=== PATIENT | male | born 1995 | race Caucasian/White ===

== ENCOUNTER 2016-10-19 08:05 | Emergency (ER) | payer BC, OTHER ==
[~2016-10-19] VITALS: Ht 175.3 cm; Wt 72.6 kg
[~2016-10-19 08:05] MED LIST: ACHD5005 PO; AZIT-21 PO; CEPH500C PO; CITA20TA12 PO; CLN150C PO; GABAPENTIN; HYDR-3454 PO; HYDR-707 PO; IBP200T PO; LEVE500T PO; TOPI100T PO; TOPI50TA2 PO; TPR100T PO; TPR25T PO
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
[2016-10-19] MEDS ORDERED: GABA600T2 (08:26)
[2016-10-19] MEDS ORDERED: LORA1TAB (08:26)
[2016-10-19] MEDS ORDERED: LIDOCAINE 1% INJ 20 ML (XYLOCAINE) VIAL INJ ONE (09:45)
[2016-10-19] MEDS ORDERED: cefTRIAXone 1 GM (ROCEPHIN) VIAL IM ONE (09:45)
--- NOTE | 2016-10-19 09:57 | ED General ---
General Chief Complaint: Oral/Throat Problems Stated Complaint: HEADACHE SORE THROAT Nursing Triage Note: WAS SEEN BY DR LIM YESTERDAY ET PUT ON MEDICATIONS FOR HIS THROAT WHICH HE HAS NOT STARTED. STATES HE IS SCHEDULED TO HAVE HIS TONSILS OUT. Nursing Sepsis Screen: No Definite Risk Source of Information: Patient Exam Limitations: No Limitations History of Present Illness Time Seen by Provider: 08:15 Initial Comments This 21-year-old young man presents to emergency room with complaints of worsening sore throat and swelling. He is not sleeping well as a result. He denies any fever. He was seen by Dr. Lim yesterday but did not get his medications due to unavailability of finances. He has problems with tonsillitis and is scheduled to have tonsillectomy. Allergies and Home Medications Allergies Coded Allergies: Sulfa (Sulfonamide Antibiotics) (Verified Allergy, Unknown, HIVES, 04/27/14 ) hydrocodone (Verified Allergy, Unknown, 04/27/14) seizure Home Medications Gabapentin 600 Mg Tablet #90 (Reported) Lorazepam 1 Mg Tablet #60 (Reported) Constitutional: no symptoms reported EENTM: see HPI Respiratory: no symptoms reported Cardiovascular: no symptoms reported Gastrointestinal: no symptoms reported Genitourinary: no symptoms reported Musculoskeletal: no symptoms reported Skin: no symptoms reported Psychiatric/Neurological: No Symptoms Reported Past Zwdhpwc-Cmxaod-Xcffot Hx Patient Social History Alcohol Use: Denies Use Recreational Drug Use: No Smoking Status: Current Everyday Smoker Recent Foreign Travel: No Contact w/Someone Who Travel: No Recent Infectious Disease Expo: No Recent Hopitalizations: No Immunizations Up To Date Tetanus Booster (TDap): Less than 5yrs Date of Influenza Vaccine: Apr 07, 2013 Surgeries HX Surgeries: Yes (DIAPHRAGMATIC HERNIA REPAIR AT ) Surgeries: Abdominal Respiratory Hx Respiratory Disorders: No Cardiovascular Hx Cardiac Disorders: No Neurological Hx Neurological Disorders: Yes Neurological Disorders: Seizure Disorder Genitourinary Hx Genitourinary Disorders: No Gastrointestinal Hx Gastrointestinal Disorders: Yes (SMALL BOWEL PROBLEM) Musculoskeletal Hx Musculoskeletal Disorders: No Endocrine Hx Endocrine Disorders: No HEENT HX ENT Disorders: No Cancer Hx Cancer: No Psychosocial Hx Psychiatric Problems: No Integumentary HX Skin/Integumentary Disorder: No Blood Transfusions Hx Blood Disorders: No Family Medical History Family Medial History: Arthritis 19 FATHER 19 MOTHER Gastroenteritis 19 MOTHER (SMALL BOWEL PROBLEM DIAPHORETIC HERNIA ) Headache disorder G8 BROTHER Hypertension 19 FATHER Seizure disorder 19 MOTHER (HAD EPILEPSY A CHILD) No Family History of: AIDS Abdominal aortic aneurysm Guernsey's disease Alcoholism Alzheimer's disease Aphasia Asthma Cancer of mouth Cardiovascular disease Cataracts Colon cancer Completed stroke Congenital disease Congenital heart disease Coronary thrombosis Cystic fibrosis Deafness or hearing loss Dementia Diabetes mellitus Drug abuse Dysphasia Fibrocystic disease of breast Glaucoma Infertility Kidney disease Myocardial infarction Neoplasm Osteoporosis Parkinson's disease Prostate cancer Psychosocial problem Respiratory disorder Severe allergy Thyroid disease Tuberculosis Visual disorder Physical Exam Vital Signs Vital Sign - Last 12Hours 10/19/16 08:10 Temp 97.8 Pulse 105 Resp 16 B/P 115/92 Pulse Ox 96 Capillary Refill : Less Than 3 Seconds General Appearance: WD/WN Mild Distress HEENT: PERRL/EOMI Normal ENT Inspection Tonsillar Exudate Tonsillar Enlargement (markedly enlarged, nearly touching) Neck: Lymphadenopathy (L) Lymphadenopathy (R) Respiratory: Lungs Clear Normal Breath Sounds No Accessory Muscle Use No Respiratory Distress Cardiovascular: Regular Rate, Rhythm No Edema No Murmur Gastrointestinal: Non Tender Soft Extremity: Normal Inspection Neurologic/Psychiatric: Alert Oriented x3 No Motor/Sensory Deficits Normal Mood/Affect knitting machine fixer 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 Patient will be treated with antibiotics until culture results are known. Patient was advised to get tested for mononucleosis if not responsive to the antibiotics. Antibiotic therapy was initiated with a Rocephin injection. Toradol was also given. Patient was given viscous lidocaine to swallow for topical pain relief. Departure Impression Impression: Primary Impression: Pharyngitis Qualified Code: J02.9 - Acute pharyngitis, unspecified Additional Impression: Tonsillitis Disposition: HOME, SELF-CARE Condition: Improved Departure-Patient Inst. Decision time for Depature: 09:35 Referrals: [facility] (PCP[facility]Family) Primary Care Physician Patient Instructions: Sore Throat, Adult (DC) Add. Discharge Instructions: Complete your antibiotics as prescribed by Dr. Lim. You may take Tylenol and/or ibuprofen for pain. Return to care if symptoms worsen. Keep your referral to discuss possible tonsillectomy. If symptoms are not improving after a couple days of antibiotics, consider being tested for mononucleosis. Replace toothbrush or any other oral instruments about 5 days after starting antibiotics. All discharge instructions reviewed with patient and/or family. Voiced understanding. ERIKA PICKETT MD Oct 19, 2016 09:57 Primary Care Physician Patient Instructions: Sore Throat, Adult (DC) Add. Discharge Instructions: Complete your antibiotics as prescribed by Dr. Lim. You may take Tylenol and/or ibuprofen for pain. Return to care if symptoms worsen. Keep your referral to discuss possible tonsillectomy. If symptoms are not improving after a couple days of antibiotics, consider being tested for mononucleosis. Replace toothbrush or any other oral instruments about 5 days after starting antibiotics. All discharge instructions reviewed with patient and/or family. Voiced understanding. ERIKA PICKETT MD Oct 19, 2016 09:57
[2016-10-19] MEDS ORDERED: LIDOCAINE 2% VISCOUS 15 ML UDC PO ONE (10:00)
[2016-10-19] MEDS ORDERED: KETOROLAC 60 MG/2 ML VIAL IM ONE (10:15)
[2016-10-19 10:19] VITALS: BP 115/92
== END 2016-10-19 10:19 | disposition home or self-care (01) ==
LOC: EDUNIT# 08:05 → ER 08:08
DX: J03.90 Acute tonsillitis, unspecified (principal); F17.210 Nicotine dependence, cigarettes, uncomplicated
CPT/HCPCS: 87430; 87804; 96372

== ENCOUNTER → 2017-02-21 | Outpatient (CLI) | payer BC ==
[~2017-02-21] MED LIST changes: +CATHETER FLUSH 10 ML SYR IV PRN; +GABA600T2; +IOHEXOL 350 MG/ML 100 ML (OMNIPAQUE 350) VIAL IV ONE; +LORA1TAB; +NS 100 ML (IVPB) BAG IV ONE
--- NOTE | 2017-02-21 09:51 | Diagnostic Imaging Report ---
INDICATION: Seizures. Vertigo. Headache. TECHNIQUE: Routine pre-and postcontrast-enhanced axial images were obtained from the skull base to the vertex. COMPARISON: 05/28/2014 FINDINGS: The ventricles and cortical sulci are normal in size and contour. Postcontrast images show no abnormal areas of enhancement. There is no midline shift or mass-effect. No acute intra-axial hemorrhage is seen. There are no abnormal areas of increased or decreased density to suggest acute hemorrhage or edema. No extra-axial masses or collections are present. The bony calvarium is intact. The visualized paranasal sinuses are unremarkable. The mastoid air cells are clear. IMPRESSION: 1. No acute intracranial abnormality. No CT evidence of mass, acute infarct or intracranial hemorrhage. Dictated by: Dictated on workstation # [id number]
== END ==
LOC: RAD 09:09
PROVIDERS: ATTEND Nurse Practitioner Community Health
DX: R56.9 Unspecified convulsions (principal); R42 Dizziness and giddiness; R51 Headache
CPT/HCPCS: 70470

== ENCOUNTER 2018-10-24 08:29 | Emergency (ER) | payer SELFPAY ==
[~2018-10-24] VITALS: Ht 175.3 cm; Wt 79.4 kg
[~2018-10-24 08:29] MED LIST changes: -CATHETER FLUSH 10 ML SYR IV PRN; -GABA600T2; +GBPN600T; -IOHEXOL 350 MG/ML 100 ML (OMNIPAQUE 350) VIAL IV ONE; -NS 100 ML (IVPB) BAG IV ONE
--- OUTSIDE RECORDS SUMMARY | 2018-10-24 08:34 | XMS REPORT ---
Author JOAO Roca Organization [employer] Address Unknown Phone Unavailable Care Team Providers Care Turret Lathe Tender Name Role Phone JOAO ROMAN CP Unavailable Allergies, Adverse Reactions, Alerts Substance Reaction Event Type Hydrocodone-Acetaminophen seizures Drug Allergy Problems Problem Type Condition ICD-9 Code Onset Dates Condition Status Problem Acute infection of pinna 380.11 Active Problem Encounter for long-term (current) use of other medications V58.69 Active Problem Acute upper respiratory infections of unspecified site 465.9 Active Problem Contusion of unspecified site 924.9 Active Problem Pain in soft tissues of limb 729.5 Active Problem Postconcussion syndrome 310.2 Active Problem Other specified disease of hair and hair follicles 704.8 Active Problem Bipolar disorder, unspecified 296.80 Active Problem Nausea with vomiting 787.01 Active Problem Memory loss 780.93 Active Assessment Sebaceous cyst 706.2 Active Assessment Seizures 780.39 Active Problem Head injury, unspecified 959.01 Active Problem 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
--- OUTSIDE RECORDS SUMMARY | 2018-10-24 08:35 | XMS REPORT ---
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 [address]-92 1 MG Orally 2 times a day March 04, 2016 1 tablet as needed Neurontin [facility] [address]-62 600 MG Orally Three times a day March 04, 2016 1 tablet Procedures Procedure Coding System Code Date Office Visit, Est Pt., Level 3 CPT-4 03177 Mar 28, 2016 Vital Signs Date/Time: Mar 28, 2016 Cardiac Monitoring Heart Rate 74 bpm Weight 152.6 lbs Height 69 in BMI 22.53 Index Blood Pressure Diastolic 77 mmHg Blood Pressure Systolic 125 mmHg Results No Known Results Summary Purpose [employer] Submission
--- OUTSIDE RECORDS SUMMARY | 2018-10-24 08:35 | XMS REPORT ---
Author Author JOAO ROMAN [facility] Address [address] [place] [address] Care Team Providers Care Wire Dropper Name Role Phone ABEL JOAO Unavailable PROBLEMS Unknown Problems ALLERGIES Substance Reaction Event Type Date Status Hydrocodone-Acetaminophen seizures Drug Allergy December, Active SOCIAL HISTORY Never Assessed PLAN OF CARE VITAL SIGNS Height 69 in 2016-12-26 Weight 159 lbs 2016-12-26 Temperature 98.4 degrees Fahrenheit 2016-12-26 Heart Rate 88 bpm 2016-12-26 Respiratory Rate 18 2016-12-26 BMI 23.48 kg/m2 2016-12-26 Blood pressure systolic 110 mmHg 2016-12-26 Blood pressure diastolic 70 mmHg 2016-12-26 MEDICATIONS Medication Instructions Dosage Frequency Start Date End Date Duration Status Neurontin 600 MG Orally Three times a day 1 tablet 8h Feb, 30 day(s) Active Zofran 4 MG Orally 3 times a day 1 tablet 8h December, Active Ativan 1 MG Orally 2 times a day 1 tablet as needed 12h Feb, Active RESULTS No Results PROCEDURES No Known procedures IMMUNIZATIONS No Known Immunizations MEDICAL (GENERAL) HISTORY Type Description Date Medical History seizures Medical History diaphramatic hernia Surgical History hernia repair Surgical History cyst removal from ear Hospitalization History surgeries Hospitalization History [facility] then transmitted to [place] for multiple seizers Hospitalization History TBI from hit in Football. Seizures. 18 yoa
--- OUTSIDE RECORDS SUMMARY | 2018-10-24 08:35 | XMS REPORT ---
Author Author DEEJAY ORTEGA [facility] Address [address] [place] [address] Care Team Providers Care Handicraft Or Hobby Shop Manager Name Role Phone DEEJAY ORTEGA Unavailable PROBLEMS Unknown Problems ALLERGIES Substance Reaction Event Type Date Status Hydrocodone-Acetaminophen seizures Drug Allergy Sep, Active SOCIAL HISTORY Never Assessed PLAN OF CARE Activity Details Follow Up prn Reason: VITAL SIGNS Height 69 in 2016-09-21 Weight 160.5 lbs 2016-09-21 Temperature 98.3 degrees Fahrenheit 2016-09-21 Heart Rate 80 bpm 2016-09-21 Respiratory Rate 18 2016-09-21 BMI 23.70 kg/m2 2016-09-21 Blood pressure systolic 104 mmHg 2016-09-21 Blood pressure diastolic 78 mmHg 2016-09-21 MEDICATIONS Medication Instructions Dosage Frequency Start Date End Date Duration Status Ativan 1 MG Orally 2 times a day 1 tablet as needed 12h Feb, Active Zofran 4 MG Orally 3 times a day 2 tablets as needed 8h Sep, 05 days Active Neurontin 600 MG Orally Three times a day 1 tablet 8h Feb, 30 day(s) Active RESULTS No Results PROCEDURES Procedure Date Ordered Result Body Site PHENERGAN 50MG/ML Sep 21, 2016 THER/PROPH/DIAG INJ, SC/IM Sep 21, 2016 IMMUNIZATIONS Vaccine Route Administration Date Status PHENERGAN 50MG/ML IM Intramuscular Sep 21, 2016 Administered MEDICAL (GENERAL) HISTORY Type Description Date Medical History seizures Medical History diaphramatic hernia Surgical History hernia repair Surgical History cyst removal from ear Hospitalization History surgeries Hospitalization History [facility] then transmitted to [place] for multiple seizers Hospitalization History TBI from hit in Football. Seizures. 18 yoa
--- OUTSIDE RECORDS SUMMARY | 2018-10-24 08:35 | XMS REPORT ---
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 Problem Contusion of unspecified site 924.9 Active Problem Pain in soft tissues of limb 729.5 Active Problem Postconcussion syndrome 310.2 Active Problem Other specified disease of hair and hair follicles 704.8 Active Problem Bipolar disorder, unspecified 296.80 Active Problem Nausea with vomiting 787.01 Active Problem Memory loss 780.93 Active Medications Medication Code System Code Instructions Start Date End Date Status Dosage Topamax [facility] [address]-72 50 MG Orally Once a day Apr 23, 2014 1 tablet Results No Known Results Summary Purpose [employer] Submission
--- OUTSIDE RECORDS SUMMARY | 2018-10-24 08:35 | XMS REPORT ---
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
--- OUTSIDE RECORDS SUMMARY | 2018-10-24 08:35 | XMS REPORT ---
Author Author ANGELLA LIM Organization [facility] Address [address] [place] [address] Care Team Providers Care Publicity Expert Name Role Phone ANGELLA LIM Unavailable PROBLEMS Unknown Problems ALLERGIES Substance Reaction Event Type Date Status Hydrocodone-Acetaminophen seizures Drug Allergy Jun, Active ENCOUNTERS Encounter Location Date Diagnosis [address] [address] Sep, Costochondritis M94.[address] [address] Jun, Arthralgia, unspecified joint M25.50 and Frequent headaches R51 [address] [address] Feb, Seizures R56.9 and Dizziness R42 [address] [address] Feb, Seizures R56.9 and Dizziness R42 [address] [address] December, Viral gastroenteritis A08.[address] [address] Oct, Tonsillitis J03.[address] [address] Sep, Gastroenteritis K52.9 ; Dehydration E86.0 and Seizures R56.[address] [address] Aug, Bronchitis J40 [address] [address] May, [facility] [address] [address] May, [facility] [address] [place] [id number] Mar, Seizures R56.9 [facility] [id number] [place] [address] Feb, Seizures R56.9 [facility] [id number] [place] [address] Sep, Abscess of external ear, left H60.02 [facility] [id number] [place] [address] Jun, [facility] [id number] [place] [address] Mar, Seizures 780.39 and Sebaceous cyst 706.2 [facility] [id number] [place] [address] Nov, [facility] [id number] [place] [address] Nov, [facility] [address] [address] May, [facility] [address] [address] May, [facility] [address] [address] May, [facility] [id number] [place] [address] May, [facility] [address] [place] Apr, [facility] [address] [address] Apr, [facility] [place] [facility] [address] [id number] [place] [address] 17 Apr, 2014 [facility] [place] [facility] [address] [id number] [place] [address] Apr, [facility] [place] [facility] [address] [id number] [place] [address] Apr, [facility] [place] [facility] [address] [id number] [place] [address] Apr, [facility] [place] [facility] [address] [id number] [place] [address] Mar, [facility] [place] [facility] [address] [id number] [place] [address] Mar, [facility] [place] [facility] [address] [id number] [place] [address] December, [facility] [place] [facility] [address] [id number] [place] [address] December, [facility] [place] [facility] [address] [id number] [place] [address] December, [facility] [place] [facility] [address] [id number] [place] [address] December, [facility] [place] [facility] [address] [id number] [place] [address] Nov, [facility] [place] [facility] [address] [id number] [place] [address] Nov, [facility] [place] [facility] [address] [id number] [place] [address] Nov, [facility] [place] [facility] [address] [id number] [place] [address] Nov, [facility] [place] [facility] [address] [id number] [place] [address] Nov, [facility] [place] [facility] [address] [id number] [place] [address] Nov, [facility] [address] [id number] [place] [address] Jun, [facility] [place] [facility] [address] [id number] [place] [address] Jun, [facility] [place] [facility] [address] [id number] [place] [address] Jan, [facility] [place] [facility] [address] [id number] [place] [address] Jan, [facility] [place] [facility] [address] [id number] [place] [address] Jan, [facility] [place] [facility] [address] [id number] [place] [address] December, [facility] [place] [facility] [address] [id number] [place] [address] Sep, [facility] [place] [facility] [address] [id number] [place] [address] Aug, [facility] [place] [facility] [address] [id number] [place] [address] Jul, [facility] [place] [facility] [address] [id number] [place] [address] Jul, [facility] [place] [facility] [address] [id number] [place] [address] Jun, [facility] [place] [facility] [address] [id number] [place] [address] Jun, [facility] [place] [facility] [address] [id number] [place] [address] Feb, [facility] [place] [facility] [address] [id number] [place] [address] 13 Nov, 2011 [facility] [place] [facility] [address] [id number] [place] [address] Nov, [facility] [place] [facility] [id number] [address] 08 Oct, 2011 [facility] [id number] [address] Oct, [facility] [address] [address] Sep, [facility] [address] [address] Sep, [facility] [address] [address] Jul, [facility] [id number] [place] [address] Jun, [facility] [address] [address] Aug, IMMUNIZATIONS No Known Immunizations SOCIAL HISTORY Never Assessed REASON FOR VISIT Headache causing dizziness, nausea, vomitting, joint pain for two weeks--Lori Pena MA PLAN OF CARE Activity Details Follow Up Will call after lab Reason: VITAL SIGNS Height 69 in 2017-07-06 Weight 172.5 lbs 2017-07-06 Temperature 98.3 degrees Fahrenheit 2017-07-06 Heart Rate 72 bpm 2017-07-06 Respiratory Rate 20 2017-07-06 BMI 25.47 kg/m2 2017-07-06 Blood pressure systolic 120 mmHg 2017-07-06 Blood pressure diastolic 88 mmHg 2017-07-06 MEDICATIONS Medication Instructions Dosage Frequency Start Date End Date Duration Status Neurontin 800 MG Orally Three times a day 1 tablet 8h Feb, 30 day(s) Not-Taking Ativan 1 MG Orally 2 times a day 1 tablet as needed 12h Feb, Not-Taking Zofran 4 MG Orally 3 times a day 1 tablet 8h December, Not-Taking RESULTS No Results PROCEDURES Procedure Date Ordered Result Body Site COMPLETE CBC W/AUTO DIFF WBC Jul 06, 2017 C-REACTIVE PROTEIN Jul 06, 2017 VENIPUNCT, ROUTINE* Jul 06, 2017 COMPREHEN METABOLIC PANEL Jul 06, 2017 INSTRUCTIONS MEDICATIONS ADMINISTERED No Known Medications MEDICAL (GENERAL) HISTORY Type Description Date Medical History seizures Medical History diaphramatic hernia Surgical History hernia repair Surgical History cyst removal from ear Hospitalization History surgeries Hospitalization History [facility] then transmitted to [place] for multiple seizers Hospitalization History TBI from hit in Football. Seizures. 18 yoa
--- OUTSIDE RECORDS SUMMARY | 2018-10-24 08:35 | XMS REPORT ---
Author JOAO Roca Organization [employer] Address Unknown Phone Unavailable Care Team Providers Care Linux System Engineer Name Role Phone JOAO ROMAN CP Unavailable [...] Start Date End Date Status Dosage Ativan [facility] [address]-39 1 MG Orally 2 times a day March 04, 2016 1 tablet as needed Results No Known Results Summary Purpose [employer] Submission
--- OUTSIDE RECORDS SUMMARY | 2018-10-24 08:35 | XMS REPORT ---
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 Name Role Phone JOAO ROMAN Unavailable PROBLEMS Unknown Problems ALLERGIES No Information ENCOUNTERS Encounter Location Date Diagnosis [address] [address] Sep, Costochondritis M94.[address] [address] Jun, Arthralgia, unspecified joint M25.50 and Frequent headaches R51 [address] [address] Feb, Seizures R56.9 and Dizziness R42 [address] [address] Feb, Seizures R56.9 and Dizziness R42 [place] [id number] [place] [address] December, Viral gastroenteritis A08.[address] [address] Oct, Tonsillitis J03.90 [place] [id number] [place] [address] Sep, Gastroenteritis K52.9 ; Dehydration E86.0 and Seizures R56.[address] [address] Aug, Bronchitis J40 [address] [address] May, [place] [id number] [address] May, [facility] [id number] [place] [address] Mar, [address] R56.9 [facility] [id number] [place] [address] 2546 Feb, Seizures R56.9 [facility] [id number] [place] [address] 2546 08 Sep, 2015 Abscess of external ear, left H60.02 [facility] [id number] [place] [address], [place] [address] Jun, [facility] [id number] [place] [address]- [address] Mar, Seizures 780.39 and Sebaceous cyst 706.2 [facility] [id number] [place] [address]- [address] Nov, [facility] [id number] [place] [address]- 29[address] Nov, [facility] [id number] [place] [address]- [address] May, [facility] [address] [address] 17 May, 2014 [facility] [id number] [place] [address]- [address] 14 May, 2014 [facility] [address] [address] 25[address] 14 May, 2014 [facility] [id number] [place] [address] 2546 Apr, [facility] [address] [address] Apr, [facility] [id number] [place] [address]- [address] Apr, [facility] [place] [facility] [address] [id number] [place] [address] Apr, [facility] [place] [facility] [address] [id number] [place] [address]- [address] Apr, [facility] [place] [facility] [address] [id number] [place] [address] 64[address] Apr, [facility] [place] [facility] [address] [id number] [place] [address] 14[address] Mar, [facility] [place] [facility] [address] [id number] [place] [address] 4299 Mar, [facility] [place] [facility] [address] [id number] [place] [address]- [address] December, [facility] [place] [facility] [address] [id number] [place] [address]- 9653 December, [facility] [place] [facility] [address] [id number] [place] [address]- 2[address] December, [facility] [place] [facility] [address] [id number] [place] [address]- 125[address] December, [facility] [place] [facility] [address] [id number] [place] [address]- 8[address] Nov, [facility] [place] [facility] [address] [id number] [place] [address]- 2521 Nov, [facility] [place] [facility] [address] [id number] [place] [address] 5[address] Nov, [facility] [place] [facility] [address] [id number] [place] [address]- 1366 Nov, [facility] [place] [facility] [address] [id number] [place] [address]- 8871 Nov, [facility] [place] [facility] [address] [id number] [place] [address]- 8859 Nov, [facility] [place] [facility] [address] [id number] [place] [address]- [address] 05 Jun, 2013 [facility] [address] [id number] [place] [address]- [address] 05 Jun, 2013 [facility] [place] [facility] [address] [id number] [place] [address]- 8[address] 14 Jan, 2013 [facility] [address] [id number] [place] [address]- 0[address] Jan, [facility] [place] [facility] [address] [id number] [place] [address]- 8252 Jan, [facility] [address] [id number] [place] [address]- [address] December, [facility] [place] [facility] [address] [id number] [place] [address]- 88[address] Sep, [facility] [address] [id number] [place] [address]- 0[address] Aug, [facility] [address] [id number] [place] [address]- 5393 Jul, [facility] [address] [id number] [place] [address]- 79[address] Jul, [facility] [address] [facility] [id number] [place] [address]- 6[address] Jun, [facility] [address] [id number] [place] [address]- 7964 Jun, [facility] [place] [facility] [address] [id number] [place] [address]- 8848 Feb, [facility] [place] [facility] [address] [id number] [place] [address]- [address] 13 Nov, 2011 [facility] [place] [facility] [address] [id number] [place] [address]- 36[address] Nov, [facility] [place] [facility] [address] [id number] [place] [address]- 8854 08 Oct, 2011 [facility] [id number] [address] Oct, [facility] [id number] [address] Sep, [facility] [address] [address]- [address] Sep, [facility] [address] [address]- [address] Jul, [facility] [address] [address]- [address] Jun, [facility] [address] [address] Aug, IMMUNIZATIONS No Known Immunizations SOCIAL HISTORY Never Assessed REASON FOR VISIT PLAN OF CARE VITAL SIGNS MEDICATIONS No Known Medications RESULTS Name Result Date Reference Range CT Scan : Head/Brain w/o & w/ Contrast 2017-02-21 PROCEDURES No Known procedures INSTRUCTIONS MEDICATIONS ADMINISTERED No Known Medications MEDICAL (GENERAL) HISTORY Type Description Date Medical History seizures Medical History diaphramatic hernia Surgical History hernia repair Surgical History cyst removal from ear Hospitalization History surgeries Hospitalization History [facility] then transmitted to [place] for multiple seizers Hospitalization History TBI from hit in Football. Seizures. 18 yoa
--- OUTSIDE RECORDS SUMMARY | 2018-10-24 08:35 | XMS REPORT ---
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 Engine Assembler Name Role Phone ANGELLA LIM Unavailable PROBLEMS Unknown Problems ALLERGIES Substance Reaction Event Type Date Status Hydrocodone-Acetaminophen seizures Drug Allergy Oct, Active SOCIAL HISTORY Never Assessed PLAN OF CARE Activity Details Follow Up prn Reason: VITAL SIGNS Height 69 in 2016-10-18 Weight 161.5 lbs 2016-10-18 Temperature 99.0 degrees Fahrenheit 2016-10-18 Heart Rate 78 bpm 2016-10-18 Respiratory Rate 18 2016-10-18 BMI 23.85 kg/m2 2016-10-18 Blood pressure systolic 120 mmHg 2016-10-18 Blood pressure diastolic 78 mmHg 2016-10-18 MEDICATIONS Medication Instructions Dosage Frequency Start Date End Date Duration Status Ativan 1 MG Orally 2 times a day 1 tablet as needed 12h Feb, Active Amoxicillin 500 mg Orally 3 times a day 1 capsule 8h Oct, Oct, 07 days Active Pseudoephedrine HCl 60 mg Orally every 6 hrs 1 tablet as needed 6h Oct, 5 days Active Neurontin 600 MG Orally Three times a day 1 tablet 8h Feb, 30 day(s) Active RESULTS No Results PROCEDURES No Known procedures IMMUNIZATIONS No Known Immunizations MEDICAL (GENERAL) HISTORY Type Description Date Medical History seizures Medical History diaphramatic hernia Surgical History hernia repair Surgical History cyst removal from ear Hospitalization History surgeries Hospitalization History [facility] then [facility] [place] for multiple seizers Hospitalization History TBI from hit in Football. Seizures. 18 yoa
--- OUTSIDE RECORDS SUMMARY | 2018-10-24 08:35 | XMS REPORT ---
Author Author JOAO ROMAN [facility] Address [address] [place] [address] Care Team Providers Care Parole Or Probation Officer Name Role Phone JOAO ROMAN Unavailable PROBLEMS Unknown Problems ALLERGIES Substance Reaction Event Type Date Status Hydrocodone-Acetaminophen seizures Drug Allergy Aug, Active SOCIAL HISTORY No smoking Hx information available PLAN OF CARE VITAL SIGNS Height 69 in 2016-08-22 Weight 159.1 lbs 2016-08-22 Temperature 98.3 degrees Fahrenheit 2016-08-22 Heart Rate 101 bpm 2016-08-22 Respiratory Rate 18 2016-08-22 Oximetry 98 % 2016-08-22 BMI 23.49 kg/m2 2016-08-22 Blood pressure systolic 132 mmHg 2016-08-22 Blood pressure diastolic 88 mmHg 2016-08-22 MEDICATIONS Medication Instructions Dosage Frequency Start Date End Date Duration Status Tessalon Perles 100 MG Orally Three times a day 1 capsule as needed 8h Aug, Active Doxycycline Hyclate 100 MG Orally every 12 hrs 1 capsule 12h Aug, Aug, 10 days Active Ativan 1 MG Orally 2 times a day 1 tablet as needed 12h Feb, Active Neurontin 600 MG Orally Three times a day 1 tablet 8h Feb, 30 day(s) Active PredniSONE 20 mg Orally Once a day 2 tablets 24h Aug, Aug, 05 days Active RESULTS No Results PROCEDURES Procedure Date Ordered Related Diagnosis Body Site MEASURE BLOOD OXYGEN LEVEL Aug 22, 2016 Office Visit, Est Pt., Level 3 Aug 22, 2016 IMMUNIZATIONS No Known Immunizations
--- OUTSIDE RECORDS SUMMARY | 2018-10-24 08:35 | XMS REPORT ---
Author JOAO Roca Organization [employer] Address Unknown Phone Unavailable Care Team Providers Care Bench Assembler Battery Name Role Phone JOAO ROMAN CP Unavailable [...] Active Problem Memory loss 780.93 Active Medications No Known Medications Results No Known Results Summary Purpose [employer] Submission
--- OUTSIDE RECORDS SUMMARY | 2018-10-24 08:35 | XMS REPORT ---
Author JOAO Roca Organization [employer] Address Unknown Phone Unavailable Care Team Providers Care Marble Helper Name Role Phone JOAO ROMAN CP Unavailable [...] Instructions Start Date End Date Status Dosage Neurontin [facility] [address]-64 600 MG Orally Three times a day March 04, 2016 1 tablet Ativan [facility] [address]-26 1 MG Orally 2 times a day March 04, 2016 1 tablet as needed Procedures Procedure Coding System Code Date Office Visit, Est Pt., Level 3 CPT-4 21033 March 04, 2016 Vital Signs Date/Time: March 04, 2016 Cardiac Monitoring Heart Rate 72 bpm Weight 147.2 lbs Height 69 in BMI 21.74 Index Blood Pressure Diastolic 76 mmHg Blood Pressure Systolic 120 mmHg Results No Known Results Summary Purpose [employer] Submission
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
[2018-10-24] MEDS ORDERED: NS IV 1000 ML 1,000 ML IV STA (09:25)
[2018-10-24] MEDS ORDERED: KETOROLAC 30 MG/ML VIAL IVP STA (09:25)
[2018-10-24 09:33] LABS: BASOPHILS % (AUTO) 0 % (0-10); EOSINOPHILS # (AUTO) 0.3 10^3/uL (0.0-0.3); EOSINOPHILS % (AUTO) 3 % (0-10); HEMATOCRIT 45 % (40-54); HEMOGLOBIN 15.5 G/DL (13.3-17.7); LYMPHOCYTES # (AUTO) 2.9 X 10^3 (1.0-4.0); LYMPHOCYTES % (AUTO) 26 % (12-44); MEAN CORPUSCULAR HEMOGLOBIN 31 PG (25-34); MEAN CORPUSCULAR HGB CONC 35 G/DL (32-36); MEAN CORPUSCULAR VOLUME 88 FL (80-99); MEAN PLATELET VOLUME 10.8 FL (7.4-10.4); MONOCYTES # (AUTO) 1.3 X 10^3 (0.0-1.0); MONOCYTES % (AUTO) 12 % (0-12); NEUTROPHILS # (AUTO) 6.4 X 10^3 (1.8-7.8); NEUTROPHILS % (AUTO) 59 % (42-75); PLATELET COUNT 246 10^3/uL (130-400); RED CELL DISTRIBUTION WIDTH 12.7 % (10.0-14.5); WHITE BLOOD COUNT 10.9 10^3/uL (4.3-11.0)
[2018-10-24 09:45] LABS: BILIRUBIN,URINE NEGATIVE (NEGATIVE); CLARITY,URINE CLEAR; COLOR,URINE YELLOW; GLUCOSE, URINE (UA) NEGATIVE (NEGATIVE); KETONES,URINE NEGATIVE (NEGATIVE); LEUKOCYTE ESTERASE ,URINE NEGATIVE (NEGATIVE); NITRITE,URINE NEGATIVE (NEGATIVE); PH,URINE 7 (5-9); PROTEIN,URINE NEGATIVE (NEGATIVE); UROBILINOGEN,URINE NORMAL (NORMAL)
[2018-10-24 09:50] LABS: ALANINE AMINOTRANSFERASE 13 U/L (0-55); ALBUMIN 4.5 GM/DL (3.2-4.5); ALKALINE PHOSPHATASE 61 U/L (40-136); BILIRUBIN,TOTAL 0.6 MG/DL (0.1-1.0); BUN/CREATININE RATIO 12; CALCIUM 9.3 MG/DL (8.5-10.1); CARBON DIOXIDE 25 MMOL/L (21-32); CHLORIDE 105 MMOL/L (98-107); CREATININE SERUM 1.18 MG/DL (0.60-1.30); GFR ESTIMATED > 60; GLUCOSE 92 MG/DL (70-105); POTASSIUM 4.5 MMOL/L (3.6-5.0); SODIUM 139 MMOL/L (135-145); TOTAL PROTEIN 7.4 GM/DL (6.4-8.2)
[2018-10-24 09:54] LABS: BACTERIA,URINE NEGATIVE /HPF
--- NOTE | 2018-10-24 10:11 | ED Abdominal Pain ---
General Chief Complaint: Abdominal/GI Problems Stated Complaint: POSSIBLE KIDNEY STONE Nursing Triage Note: PT PRESENTS TO ED WITH COMPLAINTS OF LOW ABDOMINAL PAIN AND LOWER BACK PAIN. PT STATES HE HAS NOT BEEN ABLE TO URINATE OR DEFICATE THE PAST 3 DAYS. ALSO REPORTS HE HAS BARELY SLEPT. Sepsis Screen: No Definite Risk Source of Information: Patient Exam Limitations: No Limitations History of Present Illness Date Seen by Provider: Oct 24, 2018 Time Seen by Provider: 09:20 Initial Comments Here with lower abdominal pain and low back pain for 3 days. States that he has not had a bowel movement for 3 days. Feels like there is pressure there. States that is been unable to urinate. reports eating and drinking but lesser amount due to abdominal pain. No nausea or vomiting. States he usually gets this about once a year. 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 Timing/Duration: 3-4 Days Severity/Quality: Moderate, Aching, Cramping Location: Generalized Abdomen Radiation: Back, Other (lower abdomen and back) Modifying Factors: Worsens With Movement; Improves With Resting Associated Symptoms: Back Pain; No Chest Pain, No Fever/Chills, No Nausea/ Vomiting, No Shortness of Air, No Weakness Allergies and Home Medications Allergies Coded Allergies: Sulfa (Sulfonamide Antibiotics) (Verified Allergy, Unknown, HIVES, 04/27/14 ) hydrocodone (Verified Allergy, Unknown, 04/27/14) seizure Patient Home Medication List Home Medication List Reviewed: Yes Review of Systems Review of Systems Constitutional: see HPI; No chills, No fever Respiratory: No Symptoms Reported Cardiovascular: No Symptoms Reported Gastrointestinal: See HPI, Constipated; Denies Nausea, Denies Vomiting Genitourinary: Pain, Other (fullness) Musculoskeletal: back pain; No muscle pain Skin: no symptoms reported All Other Systems Reviewed Negative Unless Noted: Yes Past Dobvepg-Zrzfmc-Ffjkns Hx Past Med/Social Hx: Reviewed Nursing Past Med/Soc Hx Patient Social History Alcohol Use: Occasionally Uses Recreational Drug Use: No Smoking Status: Current Everyday Smoker Type Used: Cigarettes Recent Foreign Travel: No Contact w/Someone Who Travel: No Recent Infectious Disease Expo: No Recent Hopitalizations: No Physical Abuse: No Sexual Abuse: No Mistreated: No Fear: No Immunizations Up To Date Tetanus Booster (TDap): Less than 5yrs Date of Influenza Vaccine: Apr 07, 2013 Past Medical History Surgeries: Yes (DIAPHRAGMATIC HERNIA REPAIR AT ) Abdominal Respiratory: No Cardiac: No Neurological: Yes Seizure Disorder Genitourinary: Yes (RETENTION ISSUES) Gastrointestinal: Yes (SMALL BOWEL PROBLEM, [facility]) Musculoskeletal: No Endocrine: No Cancer: No Psychosocial: No Integumentary: No Blood Disorders: No Family Medical History Reviewed Nursing Family Hx Arthritis 19 FATHER 19 MOTHER Gastroenteritis 19 MOTHER (SMALL BOWEL PROBLEM DIAPHORETIC HERNIA ) Headache disorder G8 BROTHER Hypertension 19 FATHER Seizure disorder 19 MOTHER (HAD EPILEPSY A CHILD) No Family History of: AIDS Abdominal aortic aneurysm Al's disease Alcoholism Alzheimer's disease Aphasia Asthma Cancer of mouth Cardiovascular disease Cataracts Colon cancer Completed stroke Congenital disease Congenital heart disease Coronary thrombosis Cystic fibrosis Deafness or hearing loss Dementia Diabetes mellitus Drug abuse Dysphasia Fibrocystic disease of breast Glaucoma Infertility Kidney disease Myocardial infarction Neoplasm Osteoporosis Parkinson's disease Prostate cancer Psychosocial problem Respiratory disorder Severe allergy Thyroid disease Tuberculosis Visual disorder Physical Exam Vital Signs Vital Signs - First Documented 10/24/18 08:52 Temp 97.9 Pulse 51 Resp 22 B/P (MAP) 135/91 (106) Pulse Ox 98 Capillary Refill : Less Than 3 Seconds Height/Weight/BMI Height: 5'9.00" Weight: 175lbs. oz. 79.387692ti; BMI Method:Stated General Appearance: WD/WN, no apparent distress Neck: full range of motion, supple Respiratory: lungs clear, normal breath sounds Cardiovascular: regular rate, rhythm, no murmur Gastrointestinal: normal bowel sounds, soft, tenderness (diffuse but lower quadrants worse) Extremities: non-tender, normal inspection Back: normal inspection, no CVA tenderness, no vertebral tenderness Neurologic/Psychiatric: alert, oriented x 3 Skin: normal color, warm/dry Progress/Results/Core Measures Results/Orders Lab Results Laboratory Tests Test 10/24/18 09:26 10/24/18 09:39 Range/Units White Blood Count 10.9 4.3-11.0 10^3/uL Red Blood Count 5.09 4.35-5.85 10^6/uL Hemoglobin 15.5 13.3-17.7 G/DL Hematocrit 45 40-54 % Mean Corpuscular Volume 88 80-99 FL Mean Corpuscular Hemoglobin 31 25-34 PG Mean Corpuscular Hemoglobin Concent 35 32-36 G/DL Red Cell Distribution Width 12.7 10.0-14.5 % Platelet Count 246 130-400 10^3/uL Mean Platelet Volume 10.8 H 7.4-10.4 FL Neutrophils (%) (Auto) 59 42-75 % Lymphocytes (%) (Auto) 26 12-44 % Monocytes (%) (Auto) 12 0-12 % Eosinophils (%) (Auto) 3 0-10 % Basophils (%) (Auto) 0 0-10 % Neutrophils # (Auto) 6.4 1.8-7.8 X 10^3 Lymphocytes # (Auto) 2.9 1.0-4.0 X 10^3 Monocytes # (Auto) 1.3 H 0.0-1.0 X 10^3 Eosinophils # (Auto) 0.3 0.0-0.3 10^3/uL Basophils # (Auto) 0.0 0.0-0.1 10^3/uL Sodium Level 139 135-145 MMOL/L Potassium Level 4.5 3.6-5.0 MMOL/L Chloride Level 105 98-107 MMOL/L Carbon Dioxide Level 25 21-32 MMOL/L Anion Gap 9 5-14 MMOL/L Blood Urea Nitrogen 14 7-18 MG/DL Creatinine 1.18 0.60-1.30 MG/DL Estimat Glomerular Filtration Rate > 60 BUN/Creatinine Ratio 12 Glucose Level 92 70-105 MG/DL Calcium Level 9.3 8.5-10.1 MG/DL Corrected Calcium 8.9 8.5-10.1 MG/DL Total Bilirubin 0.6 0.1-1.0 MG/DL Aspartate Amino Transf (AST/SGOT) 12 5-34 U/L Alanine Aminotransferase (ALT/SGPT) 13 0-55 U/L Alkaline Phosphatase 61 40-136 U/L Total Protein 7.4 6.4-8.2 GM/DL Albumin 4.5 3.2-4.5 GM/DL Urine Color YELLOW Urine Clarity CLEAR Urine pH 7 5-9 Urine Specific Epps 1.015 L 1.016-1.022 Urine Protein NEGATIVE NEGATIVE Urine Glucose (UA) NEGATIVE NEGATIVE Urine Ketones NEGATIVE NEGATIVE Urine Nitrite NEGATIVE NEGATIVE Urine Bilirubin NEGATIVE NEGATIVE Urine Urobilinogen NORMAL NORMAL MG/DL Urine Leukocyte Esterase NEGATIVE NEGATIVE Urine RBC (Auto) NEGATIVE NEGATIVE Urine RBC NONE /HPF Urine WBC NONE /HPF Urine Crystals NONE /LPF Urine Bacteria NEGATIVE /HPF Urine Casts NONE /LPF Urine Mucus NEGATIVE /LPF Urine Culture Indicated NO My Orders Orders - LILIANA TURENR MD Acute Abd Series (10/24/18 09:25) Cbc With Automated Diff (10/24/18 09:25) Comprehensive Metabolic Panel (10/24/18 09:25) Ua Culture If Indicated (10/24/18 09:25) Ns Iv 1000 Ml (Sodium Chloride 0.9%) (10/24/18 09:25) Saline Lock/Iv-Start (10/24/18 09:25) Ketorolac Injection (Toradol Injection) (10/24/18 09:25) Bisacodyl Suppository (Dulcolax Supposit (10/24/18 10:15) Medications Given in ED Current Medications Medications Dose Ordered Sig/Db Route Start Time Stop Time Status Last Admin Dose Admin Bisacodyl 20 mg ONCE ONCE ND 10/24/18 10:15 10/24/18 10:16 DC 10/24/18 10:40 20 MG Vital Signs/I&O 10/24/18 08:52 Temp 97.9 Pulse 51 Resp 22 B/P (MAP) 135/91 (106) Pulse Ox 98 Blood Pressure Mean: 106 Progress Progress Note : Progress Note Seen and evaluated. IV, labs, UA, acute abdominal series ordered. Monitor patient. Saline 1 L bolus ordered. Toradol 30 mg IV. We will do Dulcolax 2 suppositories. Monitor patient. 1200: Patient had large bowel movement and feels much better. He feels like her home without difficulty. Discharge home with return precautions. Patient verbalize understanding instructions and agreement with plan. Diagnostic Imaging Diagonstic Imaging: Xray Plain Films/CT/US/NM/MRI: chest, abdomen Comments NAME: KRYSTYNA ARIZA Kaizena REC#: [id number] PT STATUS: REG ER : 1995 PHYSICIAN: LILIANA TURNER MD ADMIT DATE: 10/24/18/ER Draft Date of Exam:10/24/18 ACUTE ABD SERIES INDICATION: Lower abdominal pain and low back pain. Time of exam: 9:46 AM The heart size is normal. The lungs are clear. No effusion is seen. No free air is identified. The bowel gas pattern is nonobstructing. No significant stool load is identified. No pathologic calcifications are seen. IMPRESSION: No acute abnormality is detected. Dictated on workstation # [id number] Dict: 10/24/18 1022 Trans: 10/24/18 [facility] [id number] Interpreted by: KELLY COFFEY MD Electronically signed by: Reviewed: Reviewed by Me Departure Impression Primary Impression: Constipation Qualified Codes: K59.00 - Constipation, unspecified Additional Impression: Lower abdominal pain Disposition: HOME, SELF-CARE Condition: Improved Departure-Patient Inst. Decision time for Depature: 12:05 Referrals: ANGELLA LIM MD (PCP) Primary Care Physician JAOO ROMAN (Family) Primary Care Physician Patient Instructions: Constipation, Adult (DC) Add. Discharge Instructions: All discharge instructions reviewed with patient and/or family. Voiced understanding. Clear liquid or light diet today and then advance as tolerated. Ensure that you take a lot of fiber in your diet. You may use MiraLAX or the generic one capful once or twice daily as needed to keep stools soft and bowel movements normal. Follow-up with your Dr. in a few days for recheck as needed. Return for worse pain, fever, vomiting, weakness, breathing problems or other concerns as needed. LILIANA TURNER MD Oct 24, 2018 10:11
[2018-10-24] MEDS ORDERED: BISACODYL 10 MG SUPP (DULCOLAX) PR ONE (10:15)
--- NOTE | 2018-10-24 10:25 | Diagnostic Imaging Report ---
INDICATION: Lower abdominal pain and low back pain. Time of exam: 9:46 AM The heart size is normal. The lungs are clear. No effusion is seen. No free air is identified. The bowel gas pattern is nonobstructing. No significant stool load is identified. No pathologic calcifications are seen. IMPRESSION: No acute abnormality is detected. Dictated by: Dictated on workstation # [id number]
[2018-10-24 12:20] VITALS: BP 139/106
== END 2018-10-24 12:20 | disposition home or self-care (01) ==
LOC: EDUNIT# 08:29 → ER 08:31
DX: K59.00 Constipation, unspecified (principal); G40.909 Epilepsy, unspecified, not intractable, without status epilepticus; F17.210 Nicotine dependence, cigarettes, uncomplicated; Z90.49 Acquired absence of other specified parts of digestive tract; Z88.2 Allergy status to sulfonamides; Z82.49 Family history of ischemic heart disease and other diseases of the circulatory system; Z88.5 Allergy status to narcotic agent; Z98.890 Other specified postprocedural states; Z87.19 Personal history of other diseases of the digestive system
CPT/HCPCS: 36415; 74022; 80053; 81000; 85025; 96361; 96374